=== PATIENT | male | born 1985 | race Caucasian/White ===

== ENCOUNTER 2017-03-25 18:16 | Emergency (ER) | payer OTHER ==
[~2017-03-25] VITALS: Ht 180.3 cm; Wt 118.2 kg
[2017-03-25 18:19] VITALS: TEMP 37; O2SAT 98; Ht 180.3 cm; Wt 118.2 kg
[2017-03-25] MEDS ORDERED: EFF/375 PO (18:36)
[2017-03-25] MEDS ORDERED: LISI-461 PO (18:36)
[2017-03-25] MEDS ORDERED: BUSP5TAB59 PO (18:36)
--- NOTE | 2017-03-25 18:53 | DIAGNOSTIC IMAGING REPORT ---
RIGHT ANKLE 3 VIEWS HISTORY: R medial ankle pain Right COMPARISON: None. FINDINGS: There is no fracture or dislocation. Mild soft tissue swelling. No radiopaque foreign bodies. IMPRESSION: No fractures. Electronically signed by: Rupesh Olmedo M.D. 03/25/2017 6:52 PM Dictated Date/Time: 03/25/2017 6:49 PM
--- NOTE | 2017-03-25 19:17 | EMERGENCY ROOM VISIT NOTE ---
History First contact with patient: 18:27 Chief Complaint: ANKLE PAIN Stated Complaint: PAIN AND SWELLING IN ANKLE History of Present Illness The patient is a 31 year old male who presents to the Emergency Room with complaints of right ankle pain and swelling for the past 3 months. The patient denies any known injury. 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 He denies any additional pain radiating into the foot, leg or thigh. He denies any current or recent back injury or pain. Weightbearing worsens his pain to a 5 out of 10. Review of Systems 10 system review was performed and was negative except for pertinent positives and negatives as indicated in history of present illness Past Medical/Surgical History Medical Problems: (1) Hypertension Surgical Problems: (1) No history of previous surgery Family History No significant family history Social History Smoking Status: Never Smoker Smokeless Tobacco Use: Yes Drug Use: none Marital Status: Housing Status: lives with family Occupation Status: employed Current/Historical Medications Scheduled Buspirone Hcl (Buspirone Hcl), 1 TAB PO PRN UD Lisinopril (Zestril), 10 MG PO DAILY Venlafaxine Hcl (Effexor), 1 TAB PO DAILY Allergies Coded Allergies: No Known Allergies (Unverified , 03/25/17) Physical Exam Vital Signs Date Time Temp Pulse Resp B/P Pulse Ox O2 Delivery O2 Flow Rate FiO2 03/25/17 19:18 88 20 155/95 Room Air 03/25/17 18:19 37.0 90 18 146/99 98 Room Air Physical Exam CONSTITUTIONAL: Healthy and well nourished. Alert and oriented X 3 with positive affect. Patient does not appear in any acute distress. HEENT: Normocephalic, atraumatic. Pupils equal, round and reactive. NECK: Full active range of motion without discomfort. MUSCULOSKELETAL: Examination of the right ankle shows edema around the medial malleolar region. He is tender through the posterior tibial tendon. No focal tenderness through the retrocalcaneal space or Achilles tendon. No focal tenderness through the calcaneus, dorsal mid foot or lateral ankle region. Negative anterior draw. Resisted plantar flexion worsens his discomfort. Pedal pulses are intact. INTEGUMENTARY: No rash or other significant dermatologic conditions noted. NEUROLOGIC: No focal neurologic deficits noted. Right foot and toes are sensory intact. Medical Decision & Procedures ER Provider Diagnostic Interpretation: My interpretation of right ankle x-rays does not show any acute fractures, dislocation or ankle mortise asymmetry. Radiologist report is as follows: RIGHT ANKLE 3 VIEWS HISTORY: R medial ankle pain Right COMPARISON: None. FINDINGS: There is no fracture or dislocation. Mild soft tissue swelling. No radiopaque foreign bodies. IMPRESSION: No fractures. ED Course Patient history and physical exam were performed. Nurse's notes were reviewed. Vital signs were reviewed, showing an elevated blood pressure 146/99. The patient refused any analgesics. X-rays of the right ankle were normal. The patient was advised that his history ankle exam findings are most consistent with an ankle tendinitis. The patient was fitted with crutches, and instructed to remain nonweightbearing over the next several days. He was encouraged to intermittently apply ice and elevate ankle for swelling. Ibuprofen and Tylenol in alternating fashion as needed for additional pain relief. Follow-up with orthopedics if symptoms persist. The patient was happy with plan of care, voiced understanding of all discharge instructions, and rated his pain a 4 out of 10 at the time of discharge. The patient was advised that his blood pressure is elevated at 155/95. He was encouraged to recheck his blood pressures, keep a journal, and follow up with his family doctor for further review. Medical Decision Impression Primary Impression: Right ankle tendonitis Additional Impression: Hypertension Departure Information Referrals No Doctor, Assigned (PCP) Patient Instructions My [facility] Problem Qualifiers Additional Impression: Hypertension Hypertension type: essential hypertension Qualified Codes: I10 - Essential ( primary) hypertension
[2017-03-25 19:18] VITALS: BP 155/95; PULSE 88
== END 2017-03-25 19:33 | disposition home or self-care (01) ==
LOC: C.EDB 18:17 → C.EDD 19:33
DX: M65.271 Calcific tendinitis, right ankle and foot (principal); I10 Essential (primary) hypertension; Z79.899 Other long term (current) drug therapy